=== PATIENT | male | born 1950 | race Hispanic/Latino ===

== ENCOUNTER 2017-04-22 07:44 | Day surgery (SDC) | payer OTHER ==
[~2017-04-22] VITALS: Ht 162.6 cm; Wt 77.6 kg
[~2017-04-22 07:44] MED LIST: AEC81 PO; ALLO100T PO; CLOP75TA14 PO; CYAN500 PO; ERGO500014 PO; LISI10TA7 PO; METO100T14 PO; NAPR220C15 PO; NITR0.4T SL; ROSU20TA PO; ROSU40TA28 PO; SODIUM CHLORIDE 0.9% 1000ML 1,000 ML IV ONE; UBID200C18 PO
[2017-04-22 08:06] VITALS: BP 142/84
[2017-04-22] MEDS ORDERED: MEPERIDINE-PF 50 MG/ML SYG ONE (11:36)
[2017-04-22] MEDS ORDERED: MIDAZOLAM HCL 1 MG/ML 2ML VIAL ONE (11:36)
== END 2017-04-22 12:35 ==
LOC: DAH 07:44
PROVIDERS: ATTEND Internal Medicine Gastroenterology
DX: Z09 Encounter for follow-up examination after completed treatment for conditions other than malignant neoplasm (principal); I10 Essential (primary) hypertension; E78.5 Hyperlipidemia, unspecified; I25.10 Atherosclerotic heart disease of native coronary artery without angina pectoris; M10.9 Gout, unspecified; Z95.1 Presence of aortocoronary bypass graft; Z82.49 Family history of ischemic heart disease and other diseases of the circulatory system
CPT/HCPCS: 99156; 99157; G0105; 93005; A4606; J2175; J2250; J7030

== ENCOUNTER → 2018-02-26 | Outpatient (CLI) | payer OTHER ==
[~2018-02-26] VITALS: Ht 165.1 cm; Wt 78.8 kg
[~2018-02-26] MED LIST changes: -ERGO500014 PO; -ROSU20TA PO; +ROSU40TA20 PO; -ROSU40TA28 PO; -SODIUM CHLORIDE 0.9% 1000ML 1,000 ML IV ONE; -UBID200C18 PO
[2018-02-26 12:59] VITALS: BP 118/62
[2018-02-26 13:13] LABS: BASOPHILS % (AUTO) 0.4 % (0.0-5.0); EOSINOPHILS % (AUTO) 1.9 % (0.0-8.0); HEMATOCRIT 28.6 % (42-54); MEAN CORPUSCULAR HGB CONC 36.1 g/dL (32.0-36.0); MEAN CORPUSCULAR VOLUME 94.1 fL (79-99); MONOCYTES % (AUTO) 0.7 % (3.0-13.0); PLATELET COUNT (AUTO) 26 K/uL (130-400); RED BLOOD CELL COUNT(AUTO) 3.04 MIL/uL (4.50-6.20); RED CELL DISTRIBUTION WIDTH 14.8 % (11.0-15.5); WHITE BLOOD COUNT (AUTO) 8.8 K/uL (4.8-10.8)
[2018-02-26 13:14] LABS: APPEARANCE,URINE CLEAR (CLEAR); BILIRUBIN,URINE NEGATIVE (NEGATIVE); COLOR,URINE YELLOW (YELLOW); GLUCOSE, URINE (UA) NEGATIVE (NEGATIVE); KETONES,URINE NEGATIVE (NEGATIVE); LEUKOCYTE ESTERASE ,URINE NEGATIVE (NEGATIVE); NITRATE,URINE NEGATIVE (NEGATIVE); OCCULT BLOOD,URINE NEGATIVE (NEGATIVE); PH,URINE 5.5 (5.0-8.0); PROTEIN,URINE NEGATIVE (NEGATIVE); UROBILINOGEN,URINE 0.2 mg/dL (0.2-1.0)
[2018-02-26 13:28] LABS: CREATININE 1.1 mg/dL (0.5-1.5); POTASSIUM 4.4 mmol/L (3.5-5.1)
[2018-02-26 13:49] LABS: INR 1.05 (0.85-1.15); PARTIAL THROMBOPLASTIN TIME 28.1 SEC (26.3-35.5)
[2018-02-26 14:26] LABS: BAND NEUTROPHILS % (MANUAL) 5 % (0-2); BASOPHILS % (MANUAL) 1 % (0-2); BLASTS, MANUAL % 11 (0-0); EOSINOPHILS % (MANUAL) 1 % (1-6); LYMPHOCYTES % (MANUAL) 60 % (22-44); MAN.DIFF COMMENT-IMPRESSION MANUAL DIFFERENTIAL; MONOCYTES % (MANUAL) 3 % (2-9); REACTIVE LYMPHOCYTES 13 % (0-0); SEGMENTED NEUTROPHILS % 6 % (40-70)
== END ==
LOC: DAH 10:00 → EDSTATUS 12:00
PROVIDERS: ATTEND Internal Medicine Cardiovascular Disease
DX: C91.10 Chronic lymphocytic leukemia of B-cell type not having achieved remission (principal); Z53.9 Procedure and treatment not carried out, unspecified reason; I25.709 Atherosclerosis of coronary artery bypass graft(s), unspecified, with unspecified angina pectoris; I10 Essential (primary) hypertension; E78.5 Hyperlipidemia, unspecified; E55.9 Vitamin D deficiency, unspecified; K21.9 Gastro-esophageal reflux disease without esophagitis; Z95.5 Presence of coronary angioplasty implant and graft; Z83.3 Family history of diabetes mellitus; Z82.49 Family history of ischemic heart disease and other diseases of the circulatory system; Z79.899 Other long term (current) drug therapy
CPT/HCPCS: 36415; 71045; 80048; 81003; 85025; 85060; 85610; 85730; 93005